=== PATIENT | female | born 1960 | race Caucasian/White ===

== ENCOUNTER 2018-10-04 17:12 | Emergency (ER) | payer OTHER ==
--- OUTSIDE RECORDS SUMMARY | 2018-10-04 17:17 | XMS REPORT | Continuity of Care Document ---
:1960 Author Organization Interface Problems Problem Status Onset Classification Date Comments Source Date Reported R93.5 - ABN Active 08/09/19 [facility] FINDINGS ON DX 16 [facility] IMAGING OF Z12.31 - ENCNTR Active 07/05/20 [facility] SCREEN MAMMOGRAM 15 [facility] FOR MA WALE, LEFT Inactive 10/27/19 Condition 01/16/2015 15 Medical Group Chalazion<sup>3</antonio Resolved 10/27/19 Problem 01/16/2018 Data p> 15 migrated Medical from [facility], [facility] on 01/18/15. NEOPLASM OF Inactive 06/20/20 Condition 01/16/2015 UNCERTAIN BEHAVIOR 14 Medical OF SKIN Group SKIN TAGS Inactive 06/20/20 Condition 01/16/2015 14 Medical Group HYPOTHYROIDISM, Active 06/20/20 Condition 01/16/2015 POSTSURGICAL 14 Medical Group Postoperative Active 06/20/20 Problem 07/28/2015 Data OP[facility] hypothyroidism<sup> 14 migrated [facility] 11, 12</sup> from [facility] on 12/13/14. Postoperative Active 06/20/20 Problem 01/16/2018 Data hypothyroidism<sup> 14 migrated Medical 12, 13</sup> from [facility], [facility] on 12/13/14. POSTMENOPAUSAL Active 01/22/20 Condition 01/16/2015 BLEEDING 14 Medical Group HYPERLIPIDEMIA Active 01/22/20 Condition 01/16/2015 14 Medical Group GERD Active 01/22/20 Condition 01/16/2015 14 Medical Group THYROID NODULES Inactive 01/22/20 Condition 01/16/2015 14 Medical Group LUNG NODULE Active 01/22/20 Condition 01/16/2015 14 Medical Group ALLERGIC RHINITIS Active 01/22/20 Condition 01/16/2015 14 Medical Group GENITAL HERPES Active 01/22/20 Condition 01/16/2015 14 Medical Group Gastroesophageal Active 01/22/20 Problem 07/28/2015 Data OP[facility] reflux 14 migrated [facility] disease<sup>3, from [facility] 4</sup> Centricity on 12/13/14. Genital herpes Active 01/22/20 Problem 07/28/2015 Data OPID simplex<sup>5</sup> 14 migrated [facility] from [facility] on 01/18/15. Hyperlipidemia<sup> Active 01/22/20 Problem 07/28/2015 Data OPID 6, 7</sup> 14 migrated [facility] from [facility] on 12/13/14. Lung mass<sup>8, Active 01/22/20 Problem 07/28/2015 Data OPID 9</sup> 14 migrated [facility] from [facility] on 12/13/14. Postmenopausal Active 01/22/20 Problem 07/28/2015 Data OP[facility] bleeding<sup>10</antonio 14 migrated [facility] p> from [facility] on 01/18/15. Allergic Active 01/22/20 Problem 01/16/2018 Data OPID rhinitis<sup>1, 14 migrated [facility], 2</sup> from [facility] Group on 12/13/14. Gastroesophageal Active 01/22/20 Problem 01/16/2018 Data reflux 14 migrated Medical disease<sup>4, from [facility], 5</sup> Centricity OP[facility] on 12/13/14. Genital herpes Active 01/22/20 Problem 01/16/2018 Data simplex<sup>6</sup> 14 migrated Medical from [facility], [facility] OP[facility] on 01/18/15. Hyperlipidemia<sup> Active 01/22/20 Problem 01/16/2018 Data MH 7, 8</sup> 14 migrated Medical from [facility], [facility] OP[facility] on 12/13/14. Lung mass<sup>9, Active 01/22/20 Problem 01/16/2018 Data MH 10</sup> 14 migrated Medical from [facility], [facility] OP[facility] on 12/13/14. Postmenopausal Active 01/22/20 Problem 01/16/2018 Data bleeding<sup>11</antonio 14 migrated Medical p> from [employer] [facility], [facility] on 01/18/15. ABDOMINAL PAIN, Inactive 01/20/20 Condition 01/16/2015 EPIGASTRIC 14 Medical Group ABDOMINAL PAIN, Inactive 01/20/20 Condition 01/16/2015 LEFT UPPER QUADRANT 14 Medical Group NAUSEA ALONE Inactive 01/20/20 Condition 01/16/2015 14 Medical Group HEMATURIA Inactive 01/20/20 Condition 01/16/2015 UNSPECIFIED 14 Medical Group Obesity Active Problem 01/16/2018 Medical Group,MH OP[facility] Encounter for 11/20/2017 [facility] screening mammogram [facility] for malignant neoplasm of breast Encounter for 11/20/2017 [facility] screening for [facility] osteoporosis Asymptomatic 11/20/2017 OPID menopausal state [facility] Postprocedural 11/20/2017 [facility] hypothyroidism [facility] Neoplasm of 11/20/2017 OP[facility] unspecified [facility] behavior of respiratory system Medications Medication Details Route Status Patient Ordering Order Source Instructions Provider Date Nitrofurantoin 100 mg=1 Active MH 100 MG Oral cap, PO, 018 Medical Capsule BID, X 10 Group [Macrobid] day, # 20 cap, 0 Refill(s), Pharmacy: [email or web address] #[id number] levothyroxine 100 100 Active MH mcg (0.1 mg) oral microgram= 018 Medical tablet 1 tab, PO, Group Daily, # 90 tab, 3 Refill(s), Pharmacy: [email or web address] #[id number] levothyroxine 100 100 No Longer MH mcg (0.1 mg) oral microgram= Active 018 Medical tablet 1 tab, PO, Group Daily, # 90 tab, 0 Refill(s), Pharmacy: [email or web address] #[id number] levothyroxine 112 112 No Longer MH mcg (0.112 mg) microgram= Active 018 Medical oral tablet 1 tab, PO, Group Daily, # 30 tab, 0 Refill(s) DOXYCYCLINE 1 tablet No Longer HYCLATE 100 MG twice Active 015 Medical TABS daily for Group 10 days DOXYCYCLINE 1 tablet Active HYCLATE 100 MG twice 015 Medical TABS daily for Group 10 days LEVOTHYROXINE 1 tablet Active MH SODIUM 125 MCG daily 014 Medical TABS Group LEVOTHYROXINE 1 tablet Active SODIUM 125 MCG daily 014 Medical TABS Group OMEPRAZOLE 40 MG Take one Active CPDR capsule by 014 Medical mouth Group daily CIPRO 500 MG TABS TAKE 1 TAB No Longer MH BID Active 014 Medical Group CIPRO 500 MG TABS TAKE 1 TAB No Longer MH BID Active 014 Medical Group Allergies, Adverse Reactions, Alerts Substance Category Reaction Severity Reaction Status Date Comments Source type Reported AUGMENTIN Drug AUGMENTIN MH allergy 4 Medical Group PENICILLIN Drug PENICILLIN MH allergy 4 Medical Group amoxicillin Assertion Drug Active Data MH OPID -clavulanat allergy 4 migrated [facility] e<sup>1</antonio from [facility] p> Centricity on 11/11/14. Originally documented as AUGMENTIN. swelling penicillins Assertion Drug Active Data MH OPID <sup>2</sup allergy 4 migrated [facility] > from [facility] on 02/09/15. Originally documented as PENICILLIN. penicillins Assertion Drug Active Data MH <sup>1</sup allergy 4 migrated Medical > from [facility] Centricity on 02/09/15. Originally documented as PENICILLIN. amoxicillin Assertion Drug Active Data MH -clavulanat allergy 4 migrated Medical e<sup>2</antonio from [facility] p> Centricity on 11/11/14. Originally documented as AUGMENTIN. swelling Immunizations Immunization Date Given Site Status Last Updated Comments Source Results Order Name Results Value Reference Date Interpretation Comments Source Range Bone Bone 11/11 - [facility] Density DXA Density /2017 - [facility] Dual Energy DXA Dual MA Energy MA BONE DENSITY ASSESSMENT: 11/11/2017 Read by: Burton Seo DO Dictated Date/time: 11/11/17 14:52 Electronically Signed by: Burton Seo DO 11/11/17 14:52 FINAL REPORT CLINICAL DATA: Post menopausal. Z78.0 . /Z78.0 RISK FACTORS: race. FINDINGS: Bone density evaluation was performed 11/11/2017 on the right femur neck using a Hologic unit. The BMD average for the exam is 0.823 g/cm2. The T-score is -0.20 and the Z-score is 1.00. This matches t he World Health Organization's criteria for normal bone density and places the patient within normal limits of fracture risk. An additional bone density evaluation was performed 11/11/2017 on the left femur neck using a Hologic unit. The BMD average for the exam is 0.754 g/cm2. The T-score is -0.90 and the Z-score is 0.30. T his matches the World Health Organization's criteria for normal bone density and places the patient within normal limits of fracture risk. An additional bone density evaluation was performed 11/11/2017 on the right hip using a Hologic unit. The BMD average for the exam is 1.023 g/cm2. The T-score is 0.70 and the Z-score is 1.50. This mat ches the World Health Organization's criteria for normal bone density and places the patient within normal limits of fracture risk. An additional bone density evaluation was performed 11/11/2017 on the left hip using a Hologic unit. The BMD average for the exam is 1.030 g/cm2. The T- score is 0.70 and the Z-score is 1.60. This matc hes the World Health Organization's criteria for normal bone density and places the patient within normal limits of fracture risk. An additional bone density evaluation was performed 11/11/2017 on the AP L1 -L4 region of spine using a Hologic unit. The BMD average for the exam is 0.978 g/cm2. The T-score is -0.60 and the Z-score is 0.70. This matches the World Health Organization's criteria for normal bone density and places the patient within normal limits of fracture risk. IMPRESSION: BONE DENSITY WITHIN NORMAL LIMITS Patient is at normal risk for fracture. Patient consult w/primary care provider is recommended. Burton Seo D.O., mdl/ernie:11/11/2017 14:52:40 Feeder Worker Power Unit Operator(s): Kat Stern [facility] Breast Breast 11/11 - [facility] Mammo Scrn Mammo Scr - Valorie ARIS incl ARIS incl CAD MA CAD MA Read by: Burton Seo DO Dictated Date/time: 11/11/17 14:47 BILATERAL DIGITAL SCREENING MAMMOGRAM WITH CAD: 11/11/2017 Electronically Signed by: Burton Seo DO 11/11/17 14 :47 FINAL REPORT CLINICAL: /Z00.00. Current study was evaluated with a Computer Aided Detection (CAD) system. COMPARISON:Comparison is made to exams dated: 07/25/2015 mammogram - [facility], 06/25/2012 mammogram, and 06/24/[address] - [facility]. TECHNIQUE: Mammographic views were obtained using digital acquisition. AppShare, version 8.1 was utilized for computer aided detection. FINDINGS: There are scattered fibroglandular densities in both breasts. There are benign appearing calcifications in both breasts. No suspicious masses, clusters of microcalcifications or areas of architectural distortion are demonstrated within either breast. There has been no significant interval change. IMPRESSION: BENIGN RECOMMENDATION:There is no mammographic evidence of malignancy. A 1 year screening mammogram is recommended.(11/12/2018) Professional services are provided by the [facility] [place] Division of Diagnostic Imaging. Burton Seo D.O., mdl/penbecca:11/11/2017 14:47:27 Feeder Worker Power Unit Operator(s): Kat Stern [facility] letter sent: BI-RADS 1/2 Mammogram BI-RADS: 2 Benign Digital Digital AMENDMENT: 08/10/2015 Burton Seo D.O. 07/25 - MH OP[facility] Mammo Mammo /2015 - [place] Screening Screening The patient's prior mammograms dated 06/25/2012 and 06/24 are made available and are compared to the most recent examination. The previously described findings in the right breast are not sig Aris MA Aris MA nificantly changed, consistent with a benign etiology. No other significant change. Read by: Areli Chandler MD A screening mammogram in one year is recommended. Dictated Date/time : 08/10/15 12:14 Electronically Signed by: Areli Chandler MD 08/10/15 12:14 FINAL REPORT - - Amended BI-RADS: 2 Benign Read by: Areli Chandler MD letter sent: Comp Normal Dictated Date/time: 08/03/15 12:12 Electronically Signed by: Areli Chandler MD 08/03/15 12:12 - DIGITAL MAMMO SCREENING ARIS MA FINAL REPORT BILATERAL DIGITAL SCREENING MAMMOGRAM WITH CAD: 07/25/2015 CLINICAL: Z12.31 Encounter For Screening Mammogram For Malignant Neoplasm Of Breast/Same. Current study was evaluated with a Computer Aided Detection (CAD) system. No comparison exams are available. There are scattered fibroglandular densities in both breasts. There are benign appearing scattered calcifications in the right breast. There are several subcentimeter oval masses with obscured margins in right breast in the upper outer quadrant right breast posterior depth and inferior right breast middle depth. No suspicious clusters of microcalcifications or areas of architectural distortion are demonstrated within either breast. IMPRESSION: INCOMPLETE: NEEDS ADDITIONAL IMAGING EVALUATION The oval masses with obscured margins in right breast are indeterminate. These possibly represent cysts. Additional right diagnostic mammographic views, including 3D tomosynthesis , as well as ultrasound are recommended. Our department attempted to obtain prior films but these were not received. It is highly recommended that prior films be obtained for comparison , as this may demonstrate stability of the findings and avoid unnecessary work- up. Areli Chandler M.D. rp/:08/03/2015 12:12:55 Feeder Worker Power Unit Operator: Rhonda STEWART [place] [id number] [facility] [address] Sur[address]it 120[facility] [id number]. letter sent: Additional Imaging Mammogram BI-RADS: 0 Indeterminate Urinalysis UA COLOR Yellow 01/19 Medical Group Urinalysis BACTERIA Occasional 01/19 URN Medical Group Academic Support Director PAP SMEAR Normal 06/13 Medical [facility] Pathology PAP SMEAR Normal 06/13 Medical [facility] Vital Signs Vital Sign Value Date Comments Source Respitory Rate 16 01/13/2018 Medical [facility] Heart Rate 116 01/13/2018 Medical Group Systolic (mm Hg) 147 01/13/2018 [facility] Diastolic (mm Hg) 90 01/13/2018 Medical Group Weight 75.455 01/13/2018 Medical Group BMI Calculated 29.47 01/13/2018 Medical [facility] Height 160.02 cm 01/13/2018 Medical Group BMI Calculated 30.18 11/10/2017 Medical Group Weight 77.273 11/10/2017 Medical Group Height 160.02 cm 11/10/2017 Medical Group Heart Rate 90 11/10/2017 Medical Group Respitory Rate 16 11/10/2017 Medical Group Systolic (mm Hg) 136 11/10/2017 Medical Group Diastolic (mm Hg) 92 11/10/2017 Medical Group Weight 75.909 08/21/2017 Medical Group BMI Calculated 29.64 08/21/2017 Medical Group Height 160.02 cm 08/21/2017 Medical Group Heart Rate 123 08/21/2017 Medical Group Systolic (mm Hg) 132 08/21/2017 Medical Group Diastolic (mm Hg) 87 08/21/2017 Medical Group Temperature Oral (F) 97.9 F 08/21/2017 Medical Group Weight 177.38 10/26/2014 Medical Group Height 63 10/26/2014 Medical Group Temperature Oral (F) 99.0 F 10/26/2014 Medical Group Respitory Rate 18 10/26/2014 Medical Group Heart Rate 115 10/26/2014 Medical Group Systolic (mm Hg) 124 10/26/2014 Medical Group Diastolic (mm Hg) 87 10/26/2014 Medical Group Height 63 06/20/2014 Medical Group Weight 182 06/20/2014 Medical Group Temperature Oral (F) 98.1 F 06/20/2014 Medical Group Respitory Rate 18 06/20/2014 Medical Group Heart Rate 110 06/20/2014 Medical Group Systolic (mm Hg) 137 06/20/2014 Medical Group Diastolic (mm Hg) 77 06/20/2014 Medical Group Weight 178 01/21/2014 Medical Group Systolic (mm Hg) 148 01/21/2014 Medical Group Diastolic (mm Hg) 98 01/21/2014 Medical Group Temperature Oral (F) 98.1 F 01/21/2014 Medical Group Respitory Rate 18 01/21/2014 Medical Group Heart Rate 98 01/21/2014 Medical Group Height 63 01/19/2014 Medical Group Weight 178 01/19/2014 Medical Group Temperature Oral (F) 98.5 F 01/19/2014 Medical Group Respitory Rate 16 01/19/2014 Medical Group Systolic (mm Hg) 135 01/19/2014 Medical Group Diastolic (mm Hg) 86 01/19/2014 Medical Group Heart Rate 108 01/19/2014 Medical Group Encounters Location Location Encounter Encounter Reason Attending ADM DC Status Source Details Type Number For Provider Date Date Visit [facility] Lab Report [id number] [place] 01/19 01/19 Wolfgang [address], /2013 Medical Medical [facility] [id number] Edgar 01/21 01/21 [place] Visit [address], /2013 Medical Medical MD [facility] Group [place] [facility] Outpt Diag [id number] Edgar 02/04 02/05 [facility] Outpatient Services [address] /2013 [facility] [id number] Edgar 06/20 06/20 Wolfgang Visit [address], /2013 Medical Medical MD Group Group [facility] Lab Report [id number] Edgar 06/21 06/21 [place] [address], Medical Medical MD Group Group [facility] Office [id number] Edgar 10/26 10/26 [place] Visit [address], Medical Medical MD Group Group [facility] Lab Report [id number] Edgar 01/16 01/16 [place] [address], Medical Medical MD Group Group [place] Outpatient [id number] EDGAR 01/16 [facility] DEFRI [facility] Outpt Diag [id number] Elida 07/25 07/26 [facility] Outpatient Services [place] [facility] /2015 [facility] Outpatient [id number] [place] 12/05 [facility] Outpatient [id number] [place] 08/21 [facility] Wolfgang [facility] Outpatient [id number] Hollis 08/21 08/22 [facility] [place] Outpatient [id number] [place] 11/10 [facility] [id number] [place] 11/10 11/11 [facility] [place] [facility] Outpt Diag [id number] Holl[place] 11/11 11/12 [facility] Outpatient Services [place] [facility] Outpatient [id number] [place] 01/13 [facility] Wolfgang [facility] Outpatient [id number] [place] 01/13 01/14 [facility] [place] Outpatient [id number] [place] 04/22 Active [facility] [place] Procedures Procedure Code Date Perfomer Comments Source vaginal Pap smear [id number] 06/13/2012 Normal Medical results Group mammogram [id number] 06/13/2012 Normal Medical Bilateral Group colonoscopy [id number] 07/14/2009 Normal Medical Group Cholecystectomy [id number] OP[facility] Thyroidectomy [id number] OPID [facility] Cholecystectomy [id number] Medical Group Thyroidectomy [id number] Medical Group
--- OUTSIDE RECORDS SUMMARY | 2018-10-04 17:17 | XMS REPORT | Continuity of Care Document ---
:1960 Author Organization [facility] Care Team Providers Name Role Phone MD Corey, Edgar Unavailable Unavailable Insurance Providers Payer name Policy type / Coverage type Policy ID Covered constitution party ID Policy [place] [employer] AET[employer] Encounters Encounter Performer Location Date Office Visit Edgar Nicole MD [facility] Jan 21, 2014 [place] Allergies, Adverse Reactions, Alerts Type Substance Reaction Status Drug allergy AUGMENTIN swelling Active Drug allergy PENICILLIN Active Problems Problem Effective Dates Problem Status ABDOMINAL PAIN, EPIGASTRIC Jan 19, 2014 Inactive ABDOMINAL PAIN, LEFT UPPER QUADRANT Jan 19, 2014 Inactive NAUSEA ALONE Jan 19, 2014 Inactive HEMATURIA UNSPECIFIED Jan 19, 2014 Inactive POSTMENOPAUSAL BLEEDING Jan 21, 2014 Active HYPERLIPIDEMIA Jan 21, 2014 Active GERD Jan 21, 2014 Active THYROID NODULES Jan 21, 2014 Active LUNG NODULE Jan 21, 2014 Active ALLERGIC RHINITIS Jan 21, 2014 Active GENITAL HERPES Jan 21, 2014 Active Procedures Date Description Comments Jan 19, 2014 smoking status Former smoker Jul 14, 2009 colonoscopy Normal Jun 13, 2012 mammogram Normal Bilateral Jun 13, 2012 vaginal Pap smear results Normal Jan 21, 2014 smoking status Former smoker Medications Medication Instructions Start Date Status CIPRO 500 MG TABS TAKE 1 TAB BID Jan 19, 2014 Inactive OMEPRAZOLE 40 MG CPDR Take one capsule by mouth daily Jan 21, 2014 Active Vital Signs Date Description Test Result Jan 19, 2014 height E&M HEIGHT 63 in Jan 19, 2014 weight E&M WEIGHT 178 lb Jan 19, 2014 temperature E&M TEMPERATURE 98.5 deg f Jan 19, 2014 respiratory rate E&M RESP RATE 16 /min Jan 19, 2014 blood pressure, systolic BP SYSTOLIC 135 mm Hg Jan 19, 2014 blood pressure, diastolic BP DIASTOLIC 86 mm Hg Jan 19, 2014 pulse rate E&M PULSE RATE 108 /min Jan 21, 2014 weight E&M WEIGHT 178 lb Jan 21, 2014 blood pressure, systolic BP SYSTOLIC 148 mm Hg Jan 21, 2014 blood pressure, diastolic BP DIASTOLIC 98 mm Hg Jan 21, 2014 temperature E&M TEMPERATURE 98.1 deg f Jan 21, 2014 respiratory rate E&M RESP RATE 18 /min Jan 21, 2014 pulse rate E&M PULSE RATE 98 /min Results Date Description Test Name Value Reference Interpretation Status Jan 19, urine color UA COLOR Yellow null Yellow 2013Jan 19, bacteria, urine BACTERIA URN Occasional null None Seen 2013 microscopy Jun 13, vaginal Pap PAP SMEAR Normal null 2011 smear results
--- OUTSIDE RECORDS SUMMARY | 2018-10-04 17:17 | XMS REPORT | Continuity of Care Document ---
:1960 Author Organization [facility] Care Team Providers Name Role Phone MD Corey, Edgar Unavailable Unavailable Insurance Providers Payer name Policy type / Coverage type Policy ID Covered green party ID Policy [place] [employer] AETNA Encounters Encounter Performer Location Date Lab Report Edgar Nicole MD [facility] [place] Jan 19, 2014 Allergies, Adverse Reactions, Alerts Type Substance Reaction Status Drug allergy AUGMENTIN swelling Active Drug allergy PENICILLIN Active Problems Problem Effective Dates Problem Status ABDOMINAL PAIN, EPIGASTRIC Jan 19, 2014 Active ABDOMINAL PAIN, LEFT UPPER QUADRANT Jan 19, 2014 Active NAUSEA ALONE Jan 19, 2014 Active HEMATURIA UNSPECIFIED Jan 19, 2014 Active Procedures Date Description Comments Jan 19, 2014 smoking status Former smoker Jul 14, 2009 colonoscopy Normal Jun 13, 2012 mammogram Normal Bilateral Jun 13, 2012 vaginal Pap smear results Normal Medications Medication Instructions Start Date Status CIPRO 500 MG TABS TAKE 1 TAB BID Jan 19, 2014 Active Vital Signs Date Description Test [...] pulse rate E&M PULSE RATE 108 /min Results Date Description Test Name Value Reference Interpretation Status Jan 19, urine color UA COLOR Yellow null Yellow 2013Jan 19, bacteria, urine BACTERIA URN Occasional null None Seen 2013 microscopy Jun 13, vaginal Pap PAP SMEAR Normal null 2011 smear results
--- OUTSIDE RECORDS SUMMARY | 2018-10-04 17:17 | XMS REPORT | Continuity of Care Document ---
:1960 Author Organization [facility] Care Team Providers Name Role Phone MD Nicole Joshua Unavailable Unavailable Insurance Providers Payer name Policy type / Coverage type Policy ID Covered green party ID Policy [place] [employer] AETNA Encounters Encounter Performer Location Date Lab Report Edgar Nicole MD [facility] [place] Jan 19, 2014 Allergies, Adverse Reactions, [...] 1 TAB BID Jan 19, 2014 Active OMEPRAZOLE 40 MG CPDR Take one capsule [...] 13, vaginal Pap PAP SMEAR Normal null 2012 smear results
--- OUTSIDE RECORDS SUMMARY | 2018-10-04 17:18 | XMS REPORT | Summary of Care ---
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) - Discharge Disposition: Home or Self Care Attending Physician: Seng Donovan MD Vital Signs No data available for this section Problem List Condition Effective Dates Status Health Status Informant Allergic rhinitis1, 2 01/21/14 Active Chalazion3 10/26/14 Resolved Gastroesophageal reflux disease4, 5 01/21/14 Active Genital herpes simplex6 01/21/14 Active Hyperlipidemia7, 8 01/21/14 Active Lung mass9, 10 01/21/14 Active Obesity(Confirmed) Active Postmenopausal vccgwhep88 01/21/14 Active Postoperative fxszgdjyhdhkqr31, 13 06/20/14 Active 1Data migrated from [employer] on 01/18/15.2Data migrated from [employer] on 12/13/14.3Data migrated from [employer] on 01/18/15.4Data migrated from [employer] on 01/18/15.5Data migrated from [employer] on 12/13/14.6Data migrated from [employer] on 01/18/15.7Data migrated from [employer] on 01/18/15.8Data migrated from [employer] on 12/13/14.9Data migrated from [employer] on .10Data migrated from [employer] on 12/13/14.11Data migrated from [employer] on 01/18/15.12Data migrated from [employer] on 01/18/15.13Data migrated from [employer] on 12/13/14. Allergies, Adverse Reactions, Alerts Substance Reaction Severity Status penicillins1 Active amoxicillin-clavulanate2 Active 1Data migrated from [employer] on 02/09/15. Originally documented as PENICILLIN.2Data migrated from [employer] on 11/11/14. Originally documented as AUGMENTIN. swelling Medications No data available for this section Results No data available for this section Immunizations No data available for this section Procedures Procedure Date Related Diagnosis Body Site Status Cholecystectomy Completed Thyroidectomy Completed Social History Social History Type Response Smoking Status Former smoker; Exposure to Tobacco Smoke None; Cigarette Smoking Last 365 Days No; Reg Smoking Cessation Counseling No entered on: 11/10/17 Assessment and Plan No data available for this section
--- OUTSIDE RECORDS SUMMARY | 2018-10-04 17:18 | XMS REPORT | Continuity of Care Document ---
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, 2014 Active SKIN TAGS Jun 20, 2014 Active HYPOTHYROIDISM, POSTSURGICAL Jun 20, 2014 Active Procedures Date Description Comments Jan 19, 2014 smoking status Former smoker Jul 14, 2009 colonoscopy Normal Jun 13, 2012 mammogram Normal Bilateral Jun 13, 2012 vaginal Pap smear results Normal Jan 21, 2014 smoking status Former smoker Jun 20, 2014 smoking status Former smoker Medications Medication Instructions Start Date Status CIPRO 500 MG TABS TAKE 1 TAB BID Jan 19, 2014 Inactive OMEPRAZOLE 40 MG CPDR Take one capsule by mouth daily Jan 21, 2014 Active LEVOTHYROXINE SODIUM 125 MCG 1 tablet daily Jun 20, 2014 Active TABS Vital Signs Date Description Test Result Jan 19, 2014 height E&M - 8302-2 HEIGHT 63 in Jan 19, 2014 weight E&M - 3141-9 WEIGHT 178 lb Jan 19, 2014 temperature E&M TEMPERATURE 98.5 deg f Jan 19, 2014 respiratory rate E&M - 9279-1 RESP RATE 16 /min Jan 19, 2014 blood pressure, systolic - 8480-6 BP SYSTOLIC 135 mm Hg Jan 19, 2014 blood pressure, diastolic - 8462-4 BP DIASTOLIC 86 mm Hg Jan 19, 2014 pulse rate E&M - 8867-4 PULSE RATE 108 /min Jan 21, 2014 weight E&M - 3141-9 WEIGHT 178 lb Jan 21, 2014 blood pressure, systolic - 8480-6 BP SYSTOLIC 148 mm Hg Jan 21, 2014 blood pressure, diastolic - 8462-4 BP DIASTOLIC 98 mm Hg Jan 21, 2014 temperature E&M TEMPERATURE 98.1 deg f Jan 21, 2014 respiratory rate E&M - 9279-1 RESP RATE 18 /min Jan 21, 2014 pulse rate E&M - 8867-4 PULSE RATE 98 /min Jun 20, 2014 height E&M - 8302-2 HEIGHT 63 in Jun 20, 2014 weight E&M - 3141-9 WEIGHT 182 lb Jun 20, 2014 temperature E&M TEMPERATURE 98.1 deg f Jun 20, 2014 respiratory rate E&M - 9279-1 RESP RATE 18 /min Jun 20, 2014 pulse rate E&M - 8867-4 PULSE RATE 110 /min Jun 20, 2014 blood pressure, systolic - 8480-6 BP SYSTOLIC 137 mm Hg Jun 20, 2014 blood pressure, diastolic - 8462-4 BP DIASTOLIC 77 mm Hg Results Date Description Test Name Value Reference Interpretation Status Jan 19, urine color UA COLOR Yellow null Yellow 2013Jan 19, bacteria, urine BACTERIA URN Occasional null None Seen 2013 microscopy Jun 13, vaginal Pap PAP SMEAR Normal null 2011 smear results
--- OUTSIDE RECORDS SUMMARY | 2018-10-04 17:18 | XMS REPORT | Continuity of Care Document ---
:1960 Author Organization [facility] Care Team Providers Name Role Phone MD Corey, Edgar Unavailable Unavailable Insurance Providers Payer name Policy type / Coverage type Policy ID Covered alliance party ID Policy [place] AETNA AETNA Encounters Encounter Performer Location Date Office Visit Edgar Nicole MD [facility] Oct 26, 2014 [place] Allergies, Adverse Reactions, Alerts Type [...] UNCERTAIN BEHAVIOR OF SKIN Jun 20, 2014 Inactive SKIN TAGS Jun 20, 2014 Inactive HYPOTHYROIDISM, POSTSURGICAL Jun 20, 2014 Active CHALAZION, LEFT Oct 26, 2014 Active Procedures Date Description Comments Jan 19, 2014 smoking status Former smoker Jul 14, 2009 colonoscopy Normal Jun 13, 2012 mammogram Normal Bilateral Jun 13, 2012 vaginal Pap smear results Normal Jan 21, 2014 smoking status Former smoker Jun 20, 2014 smoking status Former smoker Oct 26, 2014 smoking status Former smoker Medications Medication Instructions Start Date Status CIPRO 500 MG TABS TAKE 1 TAB BID Jan 19, 2014 Inactive OMEPRAZOLE 40 MG CPDR Take one capsule by mouth daily Jan 21, 2014 Active LEVOTHYROXINE SODIUM 125 MCG 1 tablet daily Jun 20, 2014 Active TABS DOXYCYCLINE HYCLATE 100 MG TABS 1 tablet twice daily for 10 Oct 26, 2014 Active days Vital Signs Date Description Test Result Jan [...] RATE 108 /min Jan 21, 2014 weight Joe&M - 3141-9 WEIGHT 178 lb Jan 21, [...] HEIGHT 63 in Jun 20, 2014 weight Joe&M - 3141-9 WEIGHT 182 lb Jun 20, [...] - 8462-4 BP DIASTOLIC 77 mm Hg Oct 26, 2014 weight Joe&Jeffrey - 3141-9 WEIGHT 177.38 lb Oct 26, 2014 height E&M - 8302-2 HEIGHT 63 in Oct 26, 2014 temperature E&M TEMPERATURE 99.0 deg f Oct 26, 2014 respiratory rate E&M - 9279-1 RESP RATE 18 /min Oct 26, 2014 pulse rate E&M - 8867-4 PULSE RATE 115 /min Oct 26, 2014 blood pressure, systolic - 8480-6 BP SYSTOLIC 124 mm Hg Oct 26, 2014 blood pressure, diastolic - 8462-4 BP DIASTOLIC 87 mm Hg Results Date Description Test Name Value Reference Interpretation Status Jan 19, urine color UA COLOR Yellow null Yellow 2013Jan 19, bacteria, urine BACTERIA URN Occasional null None Seen 2013 microscopy Jun 13, vaginal Pap PAP SMEAR Normal null 2011 smear results
--- OUTSIDE RECORDS SUMMARY | 2018-10-04 17:18 | XMS REPORT | Continuity of Care Document ---
:1960 Author Organization [facility] Care Team Providers Name Role Phone MD Corey, Edgar Unavailable Unavailable Insurance Providers Payer name Policy type / Coverage type Policy ID Covered constitution party ID Policy [place] AETNA AETNA Encounters Encounter Performer Location Date Lab Report Edgar Nicole MD [facility] [place] Jan 16, 2015 Allergies, Adverse Reactions, Alerts Type Substance Reaction [...] 2014 Active CHALAZION, LEFT Oct 26, 2014 Inactive Procedures Date Description Comments Jan 19, 2014 [...] twice daily for 10 Oct 26, 2014 Inactive days Vital Signs Date Description Test Result [...]
--- OUTSIDE RECORDS SUMMARY | 2018-10-04 17:18 | XMS REPORT | Summary of Care ---
:1960 Author Organization [facility] Primary Care [place] Address [address], [address] [place] [address]- Encounter HQ Linda(FIN) [phone] Date(s): 11/10/17 - 11/10/17 [facility] Primary Care [place] [address], [address] [place] [address]- [phone] Discharge Disposition: Home or Self Care Attending Physician: Seng Donovan MD Vital Signs Most recent to oldest [Reference Range]: 1 Height 160.02 cm (11/10/17 11:02 AM) Blood Pressure [90-140/60-90 mmHg] 136/92 mmHg (11/10/17 11:02 AM) Respiratory Rate [14-20 BRMIN] 16 BRMIN (11/10/17 11:02 AM) Peripheral Pulse Rate [60-100 bpm] 90 bpm (11/10/17 11:02 AM) Weight 77.273 kg (11/10/17 11:02 AM) Body Mass Index 30.18 m2 (11/10/17 11:02 AM) Problem List Condition Effective Dates Status Health Status Informant Allergic rhinitis1, 2 01/21/14 Active Chalazion3 10/26/14 Resolved Gastroesophageal reflux disease4, 5 01/21/14 Active Genital herpes simplex6 01/21/14 Active Hyperlipidemia7, 8 01/21/14 Active Lung mass9, 10 01/21/14 Active Obesity(Confirmed) Active Postmenopausal bsonjzww90 01/21/14 Active Postoperative schjycocraatgr28, 13 06/20/14 Active 1Data migrated from GE [...] Originally documented as AUGMENTIN. swelling Medications No Known Medications Results No data available for this section [...]
--- OUTSIDE RECORDS SUMMARY | 2018-10-04 17:18 | XMS REPORT | Summary of Care ---
:1960 Author Organization [facility] Outpatient [facility] [place] Address [address] [place], [place] [address]- Encounter HQ Encntr_alias(FIN) [id number] Date(s): 11/11/17 - 11/11/17 [facility] Outpatient Imaging [place] [address] [place], [place] [address]- Discharge Disposition: Home or Self Care Attending Physician: Seng Donovan MD Vital Signs No data available for this section Problem List Condition Effective Dates Status Health Status Informant Allergic rhinitis1, 2 01/21/14 Active Chalazion3 10/26/14 Resolved Gastroesophageal reflux disease4, 5 01/21/14 Active Genital herpes simplex6 01/21/14 Active Hyperlipidemia7, 8 01/21/14 Active Lung mass9, 10 01/21/14 Active Obesity(Confirmed) Active Postmenopausal drhetvqm99 01/21/14 Active Postoperative gyjvjtofljctfg86, 13 06/20/14 Active 1Data migrated from GE [...] penicillins1 Active amoxicillin-clavulanate2 Active 1Data migrated from [employer] on 02/09/15. Originally documented as PENICILLIN.2Data migrated from [employer] on 11/11/14. Originally documented as AUGMENTIN. swelling [...]
--- OUTSIDE RECORDS SUMMARY | 2018-10-04 17:18 | XMS REPORT | Continuity of Care Document ---
:1960 Author Organization [facility] Care Team Providers Name Role Phone MD Corey, Edgar Unavailable Unavailable Insurance Providers Payer name Policy type / Coverage type Policy ID Covered libertarian ID Policy [place] AETNA AETNA Encounters Encounter Performer Location Date Lab Report Edgar Nicole MD [facility] [place] Jun 21, 2014 Allergies, Adverse Reactions, Alerts Type Substance [...]
--- OUTSIDE RECORDS SUMMARY | 2018-10-04 17:18 | XMS REPORT | Summary of Care ---
:1960 Author Organization [facility] Primary Care [place] Address [address], [address] [place] [address]- Encounter HQ Linda(FIN) [id number] Date(s): 08/21/17 - 08/21/17 [facility] Primary [facility] [place] [address], [address] [place] [address]- [phone] Discharge Disposition: Home or Self Care Attending Physician: Seng Donovan MD Vital Signs Most recent to oldest [Reference Range]: 1 Height 160.02 cm (08/21/17 8:37 AM) Temperature Oral [96.4-99.1 DegF] 97.9 DegF (08/21/17 8:37 AM) Blood Pressure [90-140/60-90 mmHg] 132/87 mmHg (08/21/17 8:37 AM) Peripheral Pulse Rate [60-100 bpm] 123 bpm *HI* (08/21/17 8:37 AM) Weight 75.909 kg (08/21/17 8:37 AM) Body Mass Index 29.64 m2 (08/21/17 8:37 AM) Problem List Condition Effective Dates Status Health Status Informant Allergic rhinitis1, 2 01/21/14 Active Chalazion3 10/26/14 Resolved Gastroesophageal reflux disease4, 5 01/21/14 Active Genital herpes simplex6 01/21/14 Active Hyperlipidemia7, 8 01/21/14 Active Lung mass9, 10 01/21/14 Active Obesity(Confirmed) Active Postmenopausal mkeeuqdn06 01/21/14 Active Postoperative ctbftbrayyrocz71, 13 06/20/14 Active 1Data migrated from GE [...] 11/11/14. Originally documented as AUGMENTIN. swelling Medications levothyroxine 100 mcg (0.1 mg) oral tablet 100 microgram=1 tab, PO, Daily, # 90 tab, 0 Refill(s), [id number] Start Date: 08/22/17 Stop Date: 11/11/17 Status: Completedlevothyroxine 100 mcg (0.1 mg) oral tablet 100 microgram=1 tab, PO, Daily, # 90 tab, 3 Refill(s), Pharmacy: [facility] # [id number] Start Date: 11/11/17 Status: Orderedlevothyroxine 112 mcg (0.112 mg) oral tablet 112 microgram=1 tab, PO, Daily, # 30 tab, 0 Refill(s) Start Date: 08/21/17 Stop Date: 11/10/17 Status: Discontinued Results No data available for this section [...]
--- OUTSIDE RECORDS SUMMARY | 2018-10-04 17:18 | XMS REPORT | Summary of Care ---
:1960 Author Organization [facility] Primary Care [place] Address [address], [address] [place] [address]- Encounter HQ Linda(FIN) [phone] Date(s): 11/10/17 - 11/10/17 [facility] Primary Care [place] [address], [address] [place] [address]- [phone] Discharge Disposition: Home or Self Care Attending [...] mass9, 10 01/21/14 Active Obesity(Confirmed) Active Postmenopausal bdulgvtz92 01/21/14 Active Postoperative upbrhwqeuiwbdd32, 13 06/20/14 Active 1Data migrated from GE [...]
--- OUTSIDE RECORDS SUMMARY | 2018-10-04 17:19 | XMS REPORT | Summary of Care ---
:1960 Author Organization [facility] Primary Care [place] Address [address], [address] [place] [address]- Encounter HQ Jonh_ann(FIN) [id number] Date(s): 01/13/18 - 01/13/18 [facility] Primary Care [place] [address], [address] [place] [address]- [phone] Discharge Disposition: Home or Self Care Attending Physician: Seng Donovan MD Vital Signs Most recent to oldest [Reference Range]: 1 Height 160.02 cm (01/13/18 9:00 AM) Blood Pressure [90-140/60-90 mmHg] 147/90 mmHg *HI* (01/13/18 9:00 AM) Respiratory Rate [14-20 BRMIN] 16 BRMIN (01/13/18 9:00 AM) Peripheral Pulse Rate [60-100 bpm] 116 bpm *HI* (01/13/18 9:00 AM) Weight 75.455 kg (01/13/18 9:00 AM) Body Mass Index 29.47 m2 (01/13/18 9:00 AM) Problem List Condition Effective Dates Status Health Status Informant Allergic rhinitis1, 2 01/21/14 Active Chalazion3 10/26/14 Resolved Gastroesophageal reflux disease4, 5 01/21/14 Active Genital herpes simplex6 01/21/14 Active Hyperlipidemia7, 8 01/21/14 Active Lung mass9, 10 01/21/14 Active Obesity(Confirmed) Active Postmenopausal 01/21/14 Active Postoperative kuczetceimtnab12, 13 06/20/14 Active 1Data migrated from [employer] on 01/18/15.2Data migrated from [employer] on 6/2/15.3Data migrated from [employer] on 01/18/15.4Data migrated [...] 11/11/14. Originally documented as AUGMENTIN. swelling Medications Macrobid 100 mg oral capsule 100 mg=1 cap, PO, BID, X 10 day, # 20 cap, 0 Refill(s), Pharmacy: [facility]/pharmacy # [id number] Start Date: 01/13/18 Stop Date: 01/23/18 Status: Ordered Results No data available for this section Immunizations No data available for this section Procedures Procedure Date Related Diagnosis Body Site Status Cholecystectomy Completed Thyroidectomy Completed Social History Social History Type Response Smoking Status Former smoker; Exposure to Tobacco Smoke None; Cigarette Smoking Last 365 Days No; Reg Smoking Cessation Counseling No entered on: 01/13/18 Assessment and Plan No data available for this section
--- OUTSIDE RECORDS SUMMARY | 2018-10-04 17:19 | XMS REPORT | Summary of Care ---
:1960 Author Encounter Jonh_ann(LUPILLO) [id number] Date(s): 02/04/14 - 02/04/14 [facility] Outpatient [facility] [place] [address] Discharge Disposition: Home Physician Attending: Edgar Nicole MD Reason for Visit 748.60 - LUNG ANOMALY NO Problem List No data available for this section Allergies, Adverse Reactions, Alerts No data available for this section Medications No data available for this section Medications Administered During Your Visit No data available for this section Immunizations No data available for this section
--- OUTSIDE RECORDS SUMMARY | 2018-10-04 17:19 | XMS REPORT | Summary of Care ---
:1960 Author Organization [facility] Outpatient [facility] [place] Address [address] [address]- Encounter HQ Perr_ann(FIN) [id number] Date(s): 07/25/15 - 07/25/15 [facility] Outpatient [facility] [place] [address] [address]- [facility] Discharge Disposition: Home Attending Physician: Elida Lerner MD Vital Signs No data available for this section Problem List Condition Effective Dates Status Health Status Informant Allergic rhinitis1, 2 01/21/14 Active Gastroesophageal reflux disease3, 4 01/21/14 Active Genital herpes simplex5 01/21/14 Active Hyperlipidemia6, 7 01/21/14 Active Lung mass8, 9 01/21/14 Active Postmenopausal ysbbczkl42 01/21/14 Active Postoperative qcbynpzpbsdhxp26, 12 06/20/14 Active 1Data migrated from [employer] on 01/18/15.2Data migrated from [employer] on 12/13/14.3Data migrated from [employer] on 01/18/15.4Data migrated from [employer] on 12/13/14.5Data migrated from [employer] on 01/18/15.6Data migrated from [employer] on 01/18/15.7Data migrated from [employer] on 12/13/14.8Data migrated from [employer] on 01/18/15.9Data migrated from [employer] on .10Data migrated from [employer] on 01/18/15.11Data migrated from [employer] on 01/18/15.12Data migrated from [employer] on 12/13/14. Allergies, Adverse Reactions, Alerts Substance Reaction Severity Status amoxicillin-clavulanate1 Active penicillins2 Active 1Data migrated from [employer] on 11/11/14. Originally documented as AUGMENTIN. flwccnun7Gwjo migrated from [employer] on 02/09/15. Originally documented as PENICILLIN. Medications No data available for this section Results No data available for this section Immunizations No data available for this section Procedures Procedure Date Related Diagnosis Body Site Cholecystectomy Thyroidectomy Social History Social History Type Response Smoking Status Former smoker; Exposure to Tobacco Smoke None; Cigarette Smoking Last 365 Days No; Reg Smoking Cessation Counseling No Assessment and Plan No data available for this section
[2018-10-04] MEDS ORDERED: ASPIRIN 81 MG CHEWABLE TABLET ONE (17:32)
[2018-10-04] MEDS ORDERED: ONDANSETRON 4 MG/2 ML VIAL ONE (17:32)
[2018-10-04] MEDS ORDERED: FENTANYL CITR 100 MCG/2 ML ONE (17:32)
[2018-10-04 17:38] LABS: Absolute Lymphocytes (CBC) 3.8 K/uL (0.7-4.9); Absolute Monocytes 0.5 K/uL (0.1-1.3); Absolute Neutrophil 3.5 K/uL (1.8-8.0); Basophils % 0.6 % (0-1.3); Hematocrit 38.6 % (36.0-45.0); Lymphocytes % 47.2 % (15.3-44.8); MPV 9.4 fL (7.6-11.3); RBC Red Blood Cell Count 4.38 M/uL (3.86-4.86)
[2018-10-04 18:05] LABS: ALT/SGPT 25 U/L (12-78); AST/SGOT 29 U/L (15-37); Albumin 3.8 g/dL (3.4-5.0); Alkaline Phosphatase 73 U/L (45-117); BUN Blood Urea Nitrogen 16 mg/dL (7-18); Bicarbonate 26 mmol/L (21-32); Bilirubin Direct 0.1 mg/dL (0-0.2); Bilirubin Total 0.3 mg/dL (0.2-1.0); Glucose Level 110 mg/dL (74-106); NT PRO-BNP 149 pg/mL (<125); Potassium 3.6 mmol/L (3.5-5.1); Sodium Level 140 mmol/L (136-145); Thyroid Stimulating Hormone 0.203 uIU/mL (0.360-3.740); Troponin (Emerg Dept Use Only) < 0.02 ng/mL (0.0-0.045)
--- NOTE | 2018-10-04 18:06 | RAD REPORT ---
EXAM DESCRIPTION: RAD - Chest Single View - 10/04/2018 5:38 pm CLINICAL HISTORY: CHEST PAIN Chest pain. COMPARISON: No comparisons FINDINGS: Portable technique limits examination quality. The lungs are grossly clear. The heart is normal in size. No displaced fractures. IMPRESSION: No acute intrathoracic process suspected.
--- NOTE | 2018-10-04 19:03 | RAD REPORT ---
EXAM DESCRIPTION: CT - Chest For Pe Angio - 10/04/2018 6:48 pm CLINICAL HISTORY: Chest pain. CHEST PAIN COMPARISON: No comparisons TECHNIQUE: CT angiogram of the pulmonary arteries was performed with MIP. All CT scans are performed using dose optimization technique as appropriate and may include automated exposure control or mA/KV adjustment according to patient size. FINDINGS: No evidence of pulmonary thromboembolism. No acute aortic finding demonstrated. The lungs are clear. No significant pericardial or pleural fluid. No concerning bony finding. IMPRESSION: No evidence of pulmonary thromboembolism. No acute lung findings.
[2018-10-04 20:19] LABS: Urine Blood NEGATIVE (NEG); Urine Glucose NEGATIVE (NEG); Urine Protein NEGATIVE (NEG)
--- NOTE | 2018-10-04 21:04 | EDPHYS ---
Physician Documentation [facility] Name: Kiesha Sarmiento Age: 58 yrs Sex: Female : 1960 Arrival Date: 10/04/2018 Time: 17:13 Bed 8 Private MD: ED Physician Josef Reece HPI: 10/04 17:19 This 58 yrs old Female presents to ER via Ambulatory with complaints of Chest jr8 Tightness. 17:19 Onset: The symptoms/episode began/occurred acutely, today. Associated signs and jr8 symptoms: Pertinent positives: shortness of breath. Modifying factors: The patient symptoms are alleviated by nothing, the patient symptoms are aggravated by nothing. The patient has not experienced similar symptoms in the past. The patient has not recently seen a physician. Historical: - Allergies: 17:17 Augmentin; ss 17:17 PENICILLINS; ss - Home Meds: 17:17 Synthroid Oral [Active]; ss - PMHx: 17:17 Thyroid problem; ss - PSHx: 17:17 Thyroidectomy; ss - Immunization history:: Adult Immunizations up to date. - Social history:: Smoking status: Patient/guardian denies using tobacco, Patient uses alcohol, occasionally. Patient/guardian denies using street drugs. - Ebola Screening: : No symptoms or risks identified at this time Patient denies exposure to infectious person Patient denies travel to an Ebola-affected area in the 21 days before illness onset. ROS: 17:19 Eyes: Negative for injury, pain, redness, and discharge, ENT: Negative for injury, jr8 pain, and discharge, Neck: Negative for injury, pain, and swelling, Abdomen/GI: Negative for abdominal pain, nausea, vomiting, diarrhea, and constipation, Back: Negative for injury and pain, MS/Extremity: Negative for injury and deformity, Skin: Negative for injury, rash, and discoloration, Neuro: Negative for headache, weakness, numbness, tingling, and seizure. 17:19 Cardiovascular: Positive for chest pain, Negative for edema, orthopnea, palpitations, paroxysmal nocturnal dyspnea. 17:19 Respiratory: Positive for shortness of breath. Exam: 17:19 Eyes: Pupils equal round and reactive to light, extra-ocular motions intact. Lids and jr8 lashes normal. Conjunctiva and sclera are non-icteric and not injected. Cornea within normal limits. Periorbital areas with no swelling, redness, or edema. ENT: Nares patent. No nasal discharge, no septal abnormalities noted. Tympanic membranes are normal and external auditory canals are clear. Oropharynx with no redness, swelling, or masses, exudates, or evidence of obstruction, uvula midline. Mucous membranes moist. Neck: Trachea midline, no thyromegaly or masses palpated, and no cervical lymphadenopathy. Supple, full range of motion without nuchal rigidity, or vertebral point tenderness. No Meningismus. Respiratory: Lungs have equal breath sounds bilaterally, clear to auscultation and percussion. No rales, rhonchi or wheezes noted. Mild tachypnea without nasal flaring or retractions Abdomen/GI: Soft, non-tender, with normal bowel sounds. No distension or tympany. No guarding or rebound. No evidence of tenderness throughout. Back: No spinal tenderness. No costovertebral tenderness. Full range of motion. Skin: Warm, dry with normal turgor. Normal color with no rashes, no lesions, and no evidence of cellulitis. MS/ Extremity: Pulses equal, no cyanosis. Neurovascular intact. Full, normal range of motion. Neuro: Awake and alert, GCS 15, oriented to person, place, time, and situation. Cranial nerves II-XII grossly intact. Motor strength 5/5 in all extremities. Sensory grossly intact. Cerebellar exam normal. Normal gait. 17:19 Cardiovascular: Rate: tachycardic, Rhythm: regular, Pulses: Pulses are 2+ in right radial artery and left radial artery. Heart sounds: murmur, systolic, grade 2 over 6, Edema: is not appreciated, JVD: is not appreciated. 17:36 ECG was reviewed by the Attending Physician. jr8 Vital Signs: 17:17 BP 140 / 86; Pulse 126; Resp 23; Pulse Ox 100% on R/A; Weight 65.77 kg; Height 5 ft. 3 ss in. (160.02 cm); Pain 8/10; 17:30 Temp 97.7(TE); ss 17:30 BP 131 / 80; Pulse 85 MON; Resp 16; Pulse Ox 98% on R/A; sv 18:10 Pain 4/10; sv 18:12 BP 123 / 69; Pulse 84; Resp 16; Pulse Ox 98% on R/A; sv 19:14 BP 126 / 66; Pulse 100; Resp 18; Pulse Ox 100% ; sv 20:05 BP 111 / 77; Pulse 87; Resp 16; Temp 98.1; Pulse Ox 99% on R/A; Pain 0/10; ak1 20:54 BP 112 / 70; Pulse 87; Resp 16; Temp 98.1; Pulse Ox 99% on R/A; Pain 0/10; ak1 17:17 Body Mass Index 25.69 (65.77 kg, 160.02 cm) ss 17:30 Sinus Rhythm sv MDM: 17:13 Patient medically screened. jr8 21:01 Data reviewed: vital signs, nurses notes, lab test result(s), EKG, radiologic studies, jr8 CT scan, plain films. Data interpreted: Pulse oximetry: on room air is 99 %. Interpretation: normal. 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 Response to treatment: the patient's symptoms have resolved after treatment. 21:01 Differential diagnosis: Abnormal EKG, FL, Chest wall pain, costochondritis, jr8 pericarditis, GERD, Esophageal perforation, unstable angina, PE, aortic dissection, pneumonia, pneumothorax, biliary colic. 10/04 17:14 Order name: Basic Metabolic Panel; Complete Time: 18:18 10/04 17:14 Order name: CBC with Diff; Complete Time: 18:18 10/04 17:14 Order name: LFT's; Complete Time: 18:18 10/04 17:14 Order name: Magnesium; Complete Time: 18:18 [facility] 10/04 17:14 Order name: NT PRO-BNP; Complete Time: 18:18 10/04 17:14 Order name: PT-INR; Complete Time: 18:18 10/04 17:14 Order name: Troponin (emerg Dept Use Only); Complete Time: 18:18 10/04 17:14 Order name: XRAY Chest (1 view); Complete Time: 18:18 10/04 17:14 Order name: TSH; Complete Time: 18:18 10/04 17:14 Order name: T4 Free; Complete Time: 18:18 10/04 18:18 Order name: CT Chest For PE Angio; Complete Time: 19:18 10/04 18:26 Order name: Urine Dipstick--Ancillary (enter results); Complete Time: 20:20 10/04 19:51 Order name: Troponin (emerg Dept Use Only); Complete Time: 20:55 10/04 17:14 Order name: EKG; Complete Time: 17:15 10/04 17:14 Order name: Cardiac monitoring; Complete Time: 17:17 10/04 17:14 Order name: EKG - Nurse/Tech; Complete Time: 17:50 10/04 17:14 Order name: IV Saline Lock; Complete Time: 17:17 10/04 17:14 Order name: Labs collected and sent; Complete Time: 17:17 10/04 17:14 Order name: O2 Per Protocol; Complete Time: 17:17 10/04 17:14 Order name: O2 Sat Monitoring; Complete Time: 17:18 EC:36 Rate is 95 beats/min. Rhythm is regular, Normal Sinus Rhythm. QRS [place] is Normal. [place] jr8 interval is normal at 132 msec. QRS interval is normal at 78 msec. QT interval is normal at 464 msec. No Q waves. T waves are Flattened in leads II, III, aVF, V3. No ST changes noted. Clinical impression: NSR w/ Non-specific ST/T Changes. Interpreted by me. Reviewed by me. Administered Medications: 17:30 Drug: Zofran 4 mg Route: IVP; Site: right antecubital; sv 18:10 Follow up: Response: No adverse reaction sv 17:32 Drug: Aspirin Chewable Tablet 162 mg {Note: Pt's spouse stated that he gave her 2 baby sv aspirin's on the way over here. Informed Raffy MANN} Route: PO; 18:10 Follow up: Response: No adverse reaction sv 17:33 Drug: fentaNYL (PF) 50 mcg Route: IVP; Site: right antecubital; sv 18:10 Follow up: Pain 4/10 Adult; Response: No adverse reaction; Marked relief of symptoms; sv Pain is decreased Disposition: 10/05 07:23 Co-signature as Attending Physician, Josef Reece MD I agree with the assessment and hillary plan of care. Disposition: 10/04/18 21:03 Discharged to Home. Impression: Chest pain, unspecified. - Condition is Stable. - Discharge Instructions: Nonspecific Chest Pain, Chest Pain Observation. - Medication Reconciliation Form, Thank You Letter, Antibiotic Education, Prescription Opioid Use form. - Follow up: Cash Fernandez MD; When: 1 - 2 days; Reason: Recheck today's complaints, Continuance of care, Re-evaluation by your physician. - Problem is new. - Symptoms have improved. Signatures: Dispatcher [employer] EDMS Evelni Walker, RN RN Josef Valiente MD MD cha Smirch, Shelby, RN RN Raffy Whitman PA PA jr8 Judy Castillo, RN RN ak1 Corrections: (The following items were deleted from the chart) 10/04 17:21 17:19 Cardiovascular: Rate: tachycardic, Rhythm: regular, Pulses: Pulses are 2+ in jr8 right radial artery and left radial artery. Heart sounds: normal, normal S1and S2, no S3 or S4, no murmur, no rub, no gallop, Edema: is not appreciated, JVD: is not appreciated, jr8 21:37 21:03 10/04/2018 21:03 Discharged to Home. Impression: Chest pain, unspecified. ak1 Condition is Stable. Forms are Medication Reconciliation Form, Thank You Letter, Antibiotic Education, Prescription Opioid Use. Follow up: Cash Fernandez; When: 1 - 2 days; Reason: Recheck today's complaints, Continuance of care, Re-evaluation by your physician. Problem is new. Symptoms have improved. jr8
--- NOTE | 2018-10-04 21:04 | ER ---
Nurse's Notes [facility] Name: Kiesha Sarmiento Age: 58 yrs Sex: Female : 1960 Arrival Date: 10/04/2018 Time: 17:13 Bed 8 Private MD: Diagnosis: Chest pain, unspecified Presentation: 10/04 17:15 Presenting complaint: Patient states: chest pain and upper back pain that began 30 ss minutes ago. Transition of care: patient was not received from another setting of care. Onset of symptoms was October 04, 2018. Risk Assessment: Do you want to hurt yourself or someone else? Patient reports no desire to harm self or others. Initial Sepsis Screen: Does the patient have a suspected source of infection? No. Patient's initial sepsis screen is negative. Care prior to arrival: None. 17:15 Method Of Arrival: Ambulatory ss 17:15 Acuity: IRINA 2 ss 21:37 Initial Sepsis Screen: Does the patient meet any 2 criteria? No. Patient's initial ak1 sepsis screen is negative. Triage Assessment: 17:15 General: Appears in no apparent distress. uncomfortable, slender, well developed, sv Behavior is cooperative, appropriate for age, anxious. Pain: Complains of pain in mid back area, epigastric area, right upper quadrant and left upper quadrant Pain currently is 8 out of 10 on a pain scale. Quality of pain is described as tightness Pain began 1 hour ago. Is continuous, Noted to be grimacing. Neuro: Level of Consciousness is awake, alert, obeys commands, Oriented to person, place, time, situation, Moves all extremities. Full function Speech is normal. Cardiovascular: Patient's skin is warm and dry. Pulses are 3+ in right brachial artery and left brachial artery Rhythm is sinus tachycardia. Respiratory: Airway is patent Respiratory effort is even, unlabored, Respiratory pattern is regular, symmetrical. Derm: Skin is normal. Musculoskeletal: Range of motion: intact in all extremities. Historical: - Allergies: 17:17 Augmentin; ss 17:17 PENICILLINS; ss - Home Meds: 17:17 Synthroid Oral [Active]; ss - PMHx: 17:17 Thyroid problem; ss - PSHx: 17:17 Thyroidectomy; ss - Immunization history:: Adult Immunizations up to date. - Social history:: Smoking status: Patient/guardian denies using tobacco, Patient uses alcohol, occasionally. Patient/guardian denies using street drugs. - Ebola Screening: : No symptoms or risks identified at this time Patient denies exposure to infectious person Patient denies travel to an Ebola-affected area in the 21 days before illness onset. Screenin:15 Abuse screen: Denies threats or abuse. Denies injuries from another. Nutritional sv screening: No deficits noted. Tuberculosis screening: No symptoms or risk factors identified. Fall Risk None identified. Assessment: 18:10 Reassessment: Patient appears in no apparent distress at this time. Patient and/or sv family updated on plan of care and expected duration. Pain level reassessed. Patient is alert, oriented x 3, equal unlabored respirations, skin warm/dry/pink. Patient states feeling better. Patient states symptoms have improved. 20:04 Reassessment: Patient appears in no apparent distress at this time. Patient and/or ak1 family updated on plan of care and expected duration. Pain level reassessed. Patient is alert, oriented x 3, equal unlabored respirations, skin warm/dry/pink. repeat trop sent to lab Patient states feeling better. Patient states symptoms have improved. 20:04 Pain: Pain radiates to abdomen and back. ak1 20:53 Reassessment: Patient appears in no apparent distress at this time. No changes from ak1 previously documented assessment. Patient and/or family updated on plan of care and expected duration. Pain level reassessed. Patient is alert, oriented x 3, equal unlabored respirations, skin warm/dry/pink. pt ambulated to restroom with steady gait, denies SOB, denies chest pain, denies back pain, denies abd pain. Patient denies pain at this time. Patient states feeling better. Patient states symptoms have improved. Pain: Denies pain. Vital Signs: 17:17 BP 140 / 86; Pulse 126; Resp 23; Pulse Ox 100% on R/A; Weight 65.77 kg; Height 5 ft. 3 ss in. (160.02 cm); Pain 8/10; 17:30 Temp 97.7(TE); ss 17:30 BP 131 / 80; Pulse 85 MON; Resp 16; Pulse Ox 98% on R/A; sv 18:10 Pain 4/10; sv 18:12 BP 123 / 69; Pulse 84; Resp 16; Pulse Ox 98% on R/A; sv 19:14 BP 126 / 66; Pulse 100; Resp 18; Pulse Ox 100% ; sv 20:05 BP 111 / 77; Pulse 87; Resp 16; Temp 98.1; Pulse Ox 99% on R/A; Pain 0/10; ak1 20:54 BP 112 / 70; Pulse 87; Resp 16; Temp 98.1; Pulse Ox 99% on R/A; Pain 0/10; ak1 17:17 Body Mass Index 25.69 (65.77 kg, 160.02 cm) ss 17:30 Sinus Rhythm sv ED Course: 17:10 Initial lab(s) drawn, by me, sent to lab. Inserted saline lock: 18 gauge in right sv antecubital area, using aseptic technique. Blood collected. Flushed right antecubital with 5 ml normal saline. Patient maintains SpO2 saturation greater than 95% on room air. 17:13 Patient arrived in ED. sv 17:13 Raffy Morris PA is PHCP. jr8 17:13 Josef Reece MD is Attending Physician. jr8 17:14 Evelin Walker, RN is Primary Nurse. sv 17:15 Triage completed. ss 17:15 Patient has correct armband on for positive identification. Placed in gown. Bed in low sv position. Call light in reach. personnel monitor on. Pulse ox on. NIBP on. Door closed. Head of bed elevated. 17:17 Arm band placed on right wrist. ss 17:41 XRAY Chest (1 view) In Process Unspecified. EDMS 18:49 CT Chest For PE Angio In Process Unspecified. EDMS 18:49 CT completed. Patient tolerated procedure well. Patient moved back from CT. kw1 19:10 Report given to Judy RN and Earnest MOLINA. sv 19:38 Primary Nurse role handed off by Evelin Walker, TRACY sv 19:57 Judy Castillo, RN is Primary Nurse. ak1 20:54 No provider procedures requiring assistance completed. ak1 21:03 Cash Fernandez MD is Referral Physician. jr8 21:35 IV discontinued, intact, bleeding controlled, No redness/swelling at site. Pressure ak1 dressing applied. Administered Medications: 17:30 Drug: Zofran 4 mg Route: IVP; Site: right antecubital; sv 18:10 Follow up: Response: No adverse reaction sv 17:32 Drug: Aspirin Chewable Tablet 162 mg {Note: Pt's spouse stated that he gave her 2 baby sv aspirin's on the way over here. Informed Raffy ABEBE.} Route: PO; 18:10 Follow up: Response: No adverse reaction sv 17:33 Drug: fentaNYL (PF) 50 mcg Route: IVP; Site: right antecubital; sv 18:10 Follow up: Pain 4/10 Adult; Response: No adverse reaction; Marked relief of symptoms; sv Pain is decreased Outcome: 21:03 Discharge ordered by . merrick 21:36 Discharged to home ambulatory, with family. ak1 21:36 Condition: good 21:36 Discharge instructions given to patient, family, Instructed on discharge instructions, follow up and referral plans. Demonstrated understanding of instructions, follow-up care. 21:37 Patient left the ED. ak1 Signatures: Dispatcher [employer] Evelin Morales RN RN sv Smirch, Shelby, RN RN ss Roszak, Josh, PA PA jrJudy Gomez RN RN ak1 Gabby Lemon
--- NOTE | 2018-10-05 08:49 | EKG ---
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
== END 2018-10-04 21:37 | disposition home or self-care (01) ==
LOC: ER 17:12
DX: R07.9 Chest pain, unspecified (principal); E07.9 Disorder of thyroid, unspecified; Z88.0 Allergy status to penicillin; Z88.1 Allergy status to other antibiotic agents
CPT/HCPCS: 36415; 71045; 71275; 80048; 80076; 81003; 83735; 83880; 84439; 84443; 84484; 85025; 85610; 93005; 96374; 96375; 99285; J2405; J3010; Q9967